=== PATIENT | female | born 2000 | race Two or more races ===

== ENCOUNTER 2025-06-10 22:28 | Emergency (ER) | payer BC ==
[~2025-06-10] VITALS: Ht 152.4 cm; Wt 49.9 kg
[2025-06-10 23:27] VITALS: BP 126/87; TEMP 98.5; O2SAT 97
== END 2025-06-11 00:52 | disposition home or self-care (01) ==
LOC: ER 22:43
DX: J06.9 Acute upper respiratory infection, unspecified (principal); Z20.822 Contact with and (suspected) exposure to COVID-19
CPT/HCPCS: 86403-TC; 87070-TC